=== PATIENT | female | born 1965 | race Caucasian/White ===

== ENCOUNTER 2016-11-15 05:45 | Inpatient (IN) ==
[2016-11-15] MEDS ORDERED: DUONEB (A & A) INH ONE (05:55)
--- NOTE | 2016-11-15 06:55 | EKG Report ---
Test Performed on : 11/15/2016 06:00:37 AM Test Reason : SOB Blood Pressure : / mmHG Vent. Rate : 092 BPM Atrial Rate : 092 BPM P-R Int : 146 ms QRS Dur : 078 ms QT Int : 358 ms P-R-T Axes : 080 056 076 degrees QTc Int : 442 ms Sinus rhythm. with occasional premature ventricular complexes. Otherwise normal ECG When compared with ECG of 10-OCT-2016 11:56, premature ventricular complexes. are now present Unconfirmed Result
[2016-11-15 07:04] LABS: MANUAL DIFF NEEDED? NO
[2016-11-15] MEDS ORDERED: SOLU-MEDROL IV ONE (07:08)
[2016-11-15] MEDS ORDERED: ALBUTEROL NEB INH ONE (07:10)
[2016-11-15 07:12] LABS: BASO% 1.6 % (0.0-0.8); EOS# 0.13 X1000 (0.0-0.7); EOS% 1.9 % (0.0-10.0); HEMATOCRIT 31.7 % (37.0-47.0); HEMOGLOBIN 9.7 g/dL (12.0-16.0); LYMPH# 1.63 X1000 (1.2-3.4); LYMPH% 23.6 % (20.5-51.1); MCH 25.5 PG (27-31); MCHC 30.6 g/dL (33-37); MCV 83.4 FL (81-99); MONO# 1.01 X1000 (0.11-0.59); MONO% 14.6 % (1.7-9.3); MPV 9.4 FL (7.4-10.4); NEUT% 58.3 % (42.2-75.2); PLT 436 X1000 (130-400)
[2016-11-15] MEDS ORDERED: ATROVENT NEB INH ONE (07:13)
[2016-11-15 07:18] LABS: INR 0.93; PROTIME 9.7 Seconds (9.2-11.7); PTT 25.1 Seconds (22.0-36.0)
--- NOTE | 2016-11-15 07:25 | Diag Imaging Result Doc PS360 ---
EXAM: CHEST-2 VIEWS INDICATION: CP TECHNIQUE: 2 views COMPARISON: 10/10/2016 FINDINGS: The lungs are somewhat hyperinflated similar to the previous study. The lungs are grossly clear. There is no discrete pleural fluid collection or pneumothorax. The cardiomediastinal silhouette and central vasculature are grossly unremarkable. IMPRESSION: Suggestion of COPD. No definite acute pathology. Electronically signed by Tristin Cao 11/15/2016 7:23 AM
[2016-11-15 07:34] LABS: AGAP 14; ALBUMIN 3.8 g/dL (3.5-5.0); ALKALINE PHOSPHATASE 116 U/L (32-104); BUN 6 mg/dL (8-22); CALCIUM 8.2 mg/dL (8.8-10.2); CHLORIDE 105 mmol/L (98-107); CK PROFILE 160 U/L (24-173); COSMO 280; GOT 27 U/L (10-30); GPT 12 U/L (10-36); MAGNESIUM 1.9 mg/dL (1.5-2.7); POTASSIUM 3.7 mmol/L (3.5-5.1); SODIUM 142 mmol/L (136-145); TCO2 23 mmol/L (25-35); TOTAL BILIRUBIN 0.15 mg/dL (0.20-1.00); TOTAL PROTEIN 5.9 g/dL (6.3-8.3)
[2016-11-15] MEDS ORDERED: ROCEPHIN 1 GM/NS 1 GM/50 ML IVPB IV ONE (08:47)
[2016-11-15] MEDS ORDERED: MORPHINE IV ONE (09:17)
[2016-11-15 09:44] LABS: ALLEN TEST YES; BE 0.1 mmoll (-3.0-3.0); BLOOD TYPE ARTERIAL; DRAW SITE R RADIAL; METHB 0.9 % (0.0-1.5); O2(CT) 10.7 mL/dL (15.0-23.0); PCO2(98.6) 39 mmHg (35-45); PO2(98.6) 86 mmHg (60-100); SAMPLE BLOOD; SAO2 97.4 % (95.0-100.0); THB 8.1 g/dL (11.5-17.4); pH(98.6) 7.41 (7.35-7.45)
[2016-11-15 09:45] LABS: MODALITY CANNULA
[2016-11-15 10:17] LABS: IRON SATURATION 6 %; TIBC 511 ug/dL; TOTAL IRON 30 ug/dL (49-151); UNBOUND IRON 481 ug/dL (112-346)
--- NOTE | 2016-11-15 10:22 | PROVIDER DOCUMENTATION ---
This chart was entered by Bogdan Bhatia Scribe, acting as scribe for Crispin Robledo MD. HPI-Respiratory General - General Chief Complaint: Shortness of Breath Stated Complaint: resp distress Time Seen by Provider: 11/15/16 06:10 Source: patient Allergies/Adverse Reactions: Patient Allergies Allergy/AdvReac Type Severity Reaction Status Date / Time methotrexate Allergy Unknown Verified 11/15/16 06:10 cephalexin monohydrate * AdvReac DIARRHEA Verified 11/15/16 06:10 [From Keflex] ondansetron HCl * AdvReac NAUSEA Verified 11/15/16 06:10 [From Zofran (as hydrochloride)] Home Medications: Home Medication List Medication Instructions Recorded Confirmed Last Taken Type Fluticasone/Salmet 250/50 INH 1 puff INH RTBID #1 inhaler 09/09/15 11/15/16 07:00 Rx [Advair 250/50 Diskus] 1 PUFF Sucralfate [Carafate] 1 gm PO 4XDAY #60 tablet 09/09/15 11/15/16 11/14/16 17:00 Rx Albuterol Sulfate Inhaler 2 puff INH PD8BVBP #30 inhaler 05/09/16 11/15/1610/10 07:00 Rx [Ventolin Hfa] 2 PUFF Albuterol [Albuterol Neb] 2.5 mg INH Q4H PRN PRN #30 neb 08/07/16 11/15/1611/15 05:30 Rx Alprazolam [Xanax] 0.5 mg PO BID PRN PRN #30 tablet 08/07/16 11/15/16 10/10/16 07:00 Rx 0.5 MG Fluticasone 50 Mcg Nasal Pray 1 spray AUDI DAILY #1 bottle 08/07/16 11/15/1608/28 07:00 Rx [Flonase] Gabapentin [Neurontin] 200 mg PO TID #90 capsule 08/07/16 11/15/16 11/14/16 19: 00 Rx Hydrocodone/APAP 7.5 mg/325 mg 1 each PO Q4H PRN PRN #30 tablet 08/07/1610/10/16 07:00 Rx [[place]-7.5] 1 EACH Metoprolol Succinate E.r. [Toprol 25 mg PO DAILY #90 tablet 08/07/16 11/15/16 07:00 Rx Xl] Prednisone 10 mg PO DAILY #40 tablet 08/07/16 11/15/16 11/14/16 07:00 Rx Trazodone [Desyrel] 50 mg PO QHS #30 tablet 08/07/16 11/15/16 11/14/16 20:00 Rx Promethazine [Phenergan] 25 mg PO Q8H PRN PRN #10 tablet 08/15/16 11/15/1610/10 07:00 Rx 25 MG CefTRIAXONE [Rocephin] 1 gm .SEE ORDER DAILY #1 vial 11/15/16 Unknown Rx - History of Present Illness-Resp Nature of Presenting Problem: patient is a 51 y/o F that presents with shortness of breath that has progressed over 5 days. She has COPD and is o2 dependent. She has been on 4 liters but has had to increase it over the past few days. She has had a cough but no fever/chills, chest pain, or leg swelling. She has done more breathing treatments than usual as well. Last hospital admission was last year. She feels she is getting worse. Quality of Pain: reports: tightness Severity in ED: reports: moderate Onset/Duration: reports: gradual, 5 days ago Timing: reports: improving Context: denies: out of meds, aspiration/choking Cough Quality/Degree: reports: moderate, productive cough Episode Frequency: chronic episodes Current Respiratory Medication Therapy: Initiated see nurses note Modifying Factors: worse with: coughing Associated Symptoms: reports: cough, shortness of breath, short of breath, wheezing. denies: chest pain/soreness, fever/chills, nasal congestion, nasal drainage Similar Symptoms Previously?: Yes Recently seen or treated by another doctor?: No Review of Systems - Adult - REVIEW OF SYSTEMS - ADULT Constitutional: denies: chills, fever Eyes: reports: no symptoms reported Ears, Nose, Mouth & Throat: reports: no symptoms reported Cardiovascular: denies: chest pain, palpitations, syncope Respiratory: reports: cough, shortness of breath, wheezing Gastrointestinal: denies: abdominal pain, nausea, vomiting Genitourinary: denies: dysuria, frequency, hematuria Musculoskeletal: denies: back pain, joint pain, neck pain Integumentary: reports: no symptoms reported Neurological: reports: no symptoms reported Psychiatric: reports: no symptoms reported Endocrine: reports: no symptoms reported Hematologic/Lymphatic: reports: no symptoms reported Allergic/Immunologic: reports: no symptoms reported All Other Systems: Reviewed and Negative Past History - Adult - PAST MEDICAL HISTORY-ADULT Review of Records: reports: Old Records Reviewed, Nursing Assessment Review, Medications Reviewed Cardiovascular: reports: A-Fib, HTN, hyperlipidemia Respiratory: reports: COPD, pneumonia Gastrointestinal: reports: GERD Musculoskeletal: reports: fibromyalgia, intervertebral disc disease, osteoporosis Endocrine/Immune: reports: thyroid disorder (hypo) - PRIOR SURGERIES/PROCEDURES Surgical/Procedure History: reports: recent surgery (hernia repair/bowel obstruction), cholecystectomy, tonsillectomy, hernia repair, bowel surgery ( colon resection), other (spleenectomy) - IMMUNIZATION STATUS Childhood Immunizations: See Nurse Assessment Flu Vaccine: See Nurse Assessment - FAMILY HISTORY Family History: reviewed, not pertinent - SOCIAL HISTORY Smoking: quit greater than 1 year, cigarettes Living Situation: family Physical Exam-General - PHYSICAL EXAM-ADULT Initial Vital Signs Reviewed: Yes - CONSTITUTIONAL General Appearance: alert, mild distress - EYES Eyes: PERRL/EOMI, pink conjunctivae - HEAD, EARS, NOSE, MOUTH & THROAT HENMT: normocephalic/atraumatic, moist mucous membranes, normal ENT inspection - NECK Neck: full range of motion, normal inspection - RESPIRATORY Respiratory: no respiratory distress, no accessory muscle use, wheezing - CARDIOVASCULAR Cardiovascular: regular rate, rhythm, no edema, no murmur - GASTROINTESTINAL (ABDOMEN) Abdominal Exam: normal bowel sounds, non tender, soft - MUSCULOSKELETAL Extremity: normal range of motion, normal inspection, no pedal edema, no calf tenderness - SKIN Integumentary: normal color, warm/dry - NEUROLOGIC Neurologic: supervisor mirror fabrication II-XII nml as tested, no motor/sensory deficits - PSYCHIATRIC Psych/Mental Status: normal mood/affect, normal thought content, normal thought process, oriented x 3 Progress - PLAN OF CARE/RESULTS Progress/Plan/Lab Results: Vital Signs - 8 hr 11/15/16 06:09 11/15/16 07:05 11/15/16 07:15 Temperature 98.5 F Pulse Rate 89 98 H 98 H Respiratory Rate 15 16 18 Blood Pressure 129/86 118/77 O2 Sat by Pulse Oximetry 100 97 Laboratory Results - last 24 hr 11/15/16 11/15/16 11/15/16 06:10 06:10 06:10 WBC RBC Hgb Hct MCV MCH MCHC RDW Std Deviation Plt Count MPV Immature Gran % (Auto) Neut % (Auto) Lymph % (Auto) Brooks % (Auto) Eos % (Auto) Baso % (Auto) Immature Gran # (Auto) Neut # (Auto) Lymph # (Auto) Brooks # (Auto) Eos # (Auto) Baso # (Auto) PT INR PTT (Actin FS) D-Dimer 0.17 Specimen Type Sample Site pH pCO2 pO2 HCO3 Base Excess Oxyhemoglobin ABG O2 Sat (Calculated) ABG O2 Saturation ABG Carboxyhemoglobin ABG Methemoglobin Cruz Test A-a O2 Difference Total Hemoglobin Lactate Liter Flow Blood Gas Modality FiO2 % Sodium 142 Potassium 3.7 Chloride 105 Carbon Dioxide 23 L Anion Gap 14 BUN 6 L Creatinine 0.4 L Estimated GFR/1.73 m2 > 60 BUN/Creatinine Ratio 15 Glucose 87 Calculated Osmolality 280 Calcium 8.2 L Magnesium 1.9 Iron TIBC % Saturation Unsat Iron Binding Total Bilirubin 0.15 L AST 27 ALT 12 Alkaline Phosphatase 116 H Creatine Kinase 160 Troponin T < 0.010 Nqs-[id number]-Pokjttnkqap Pept Total Protein 5.9 L Albumin 3.8 Globulin 2.1 Albumin/Globulin Ratio 1.8 Triglycerides Cholesterol LDL Cholesterol Direct VLDL Cholesterol, Calc HDL Cholesterol Coronary Risk Interp Folate 11/15/16 11/15/16 11/15/16 06:10 06:10 06:10 WBC 6.91 RBC 3.80 L Hgb 9.7 L Hct 31.7 L MCV 83.4 MCH 25.5 L MCHC 30.6 L RDW Std Deviation 20.2 H Plt Count 436 H MPV 9.4 Immature Gran % (Auto) 0.0 Neut % (Auto) 58.3 Lymph % (Auto) 23.6 Brooks % (Auto) 14.6 H Eos % (Auto) 1.9 Baso % (Auto) 1.6 H Immature Gran # (Auto) 0.00 Neut # (Auto) 4.03 Lymph # (Auto) 1.63 Brooks # (Auto) 1.01 H Eos # (Auto) 0.13 Baso # (Auto) 0.11 PT 9.7 INR 0.93 PTT (Actin FS) 25.1 D-Dimer Specimen Type Sample Site pH pCO2 pO2 HCO3 Base Excess Oxyhemoglobin ABG O2 Sat (Calculated) ABG O2 Saturation ABG Carboxyhemoglobin ABG Methemoglobin Cruz Test A-a O2 Difference Total Hemoglobin Lactate Liter Flow Blood Gas Modality FiO2 % Sodium Potassium Chloride Carbon Dioxide Anion Gap BUN Creatinine Estimated GFR/1.73 m2 BUN/Creatinine Ratio Glucose Calculated Osmolality Calcium Magnesium Iron TIBC % Saturation Unsat Iron Binding Total Bilirubin AST ALT Alkaline Phosphatase Creatine Kinase Troponin T Hlt-S-Atzdyygbvdu Pept 187 Total Protein Albumin Globulin Albumin/Globulin Ratio Triglycerides Cholesterol LDL Cholesterol Direct VLDL Cholesterol, Calc HDL Cholesterol Coronary Risk Interp Folate 11/15/16 11/15/16 11/15/16 06:10 06:10 06:10 WBC RBC Hgb Hct MCV MCH MCHC RDW Std Deviation Plt Count MPV Immature Gran % (Auto) Neut % (Auto) Lymph % (Auto) Brooks % (Auto) Eos % (Auto) Baso % (Auto) Immature Gran # (Auto) Neut # (Auto) Lymph # (Auto) Brooks # (Auto) Eos # (Auto) Baso # (Auto) PT INR PTT (Actin FS) D-Dimer Specimen Type Sample Site pH pCO2 pO2 HCO3 Base Excess Oxyhemoglobin ABG O2 Sat (Calculated) ABG O2 Saturation ABG Carboxyhemoglobin ABG Methemoglobin Cruz Test A-a O2 Difference Total Hemoglobin Lactate Liter Flow Blood Gas Modality FiO2 % Sodium Potassium Chloride Carbon Dioxide Anion Gap BUN Creatinine Estimated GFR/1.73 m2 BUN/Creatinine Ratio Glucose Calculated Osmolality Calcium Magnesium Iron 30 L TIBC 511 % Saturation 6 Unsat Iron Binding 481 H Total Bilirubin AST ALT Alkaline Phosphatase Creatine Kinase Troponin T Sny-P-Grdifopgthh Pept Total Protein Albumin Globulin Albumin/Globulin Ratio Triglycerides 63 Cholesterol 187 LDL Cholesterol Direct 67 VLDL Cholesterol, Calc 13 HDL Cholesterol 131 H Coronary Risk Interp 2.00 Folate 15.5 11/15/16 09:30 WBC RBC Hgb Hct MCV MCH MCHC RDW Std Deviation Plt Count MPV Immature Gran % (Auto) Neut % (Auto) Lymph % (Auto) Brooks % (Auto) Eos % (Auto) Baso % (Auto) Immature Gran # (Auto) Neut # (Auto) Lymph # (Auto) Brooks # (Auto) Eos # (Auto) Baso # (Auto) PT INR PTT (Actin FS) D-Dimer Specimen Type ARTERIAL Sample Site R RADIAL pH 7.41 pCO2 39 pO2 86 HCO3 25.0 Base Excess 0.1 Oxyhemoglobin 92.9 L ABG O2 Sat (Calculated) 10.7 L ABG O2 Saturation 97.4 ABG Carboxyhemoglobin 3.70 H ABG Methemoglobin 0.9 Cruz Test YES A-a O2 Difference 122.0 Total Hemoglobin 8.1 L Lactate 0.60 Liter Flow 4.0 Blood Gas Modality CANNULA FiO2 % 36.0 Sodium Potassium Chloride Carbon Dioxide Anion Gap BUN Creatinine Estimated GFR/1.73 m2 BUN/Creatinine Ratio Glucose Calculated Osmolality Calcium Magnesium Iron TIBC % Saturation Unsat Iron Binding Total Bilirubin AST ALT Alkaline Phosphatase Creatine Kinase Troponin T Mki-Q-Vibljpavbib Pept Total Protein Albumin Globulin Albumin/Globulin Ratio Triglycerides Cholesterol LDL Cholesterol Direct VLDL Cholesterol, Calc HDL Cholesterol Coronary Risk Interp Folate Orders Category Date Time Status Admit - [facility] Routine AdmDCTranf 11/15/16 10:40 Ordered Activity - Up with Assistance ORDERED Care 11/15/16 10:40 Active Cardiac Monitoring DIRECTED Care 11/15/16 06:58 Completed Intake and Output-Strict ORDERED Care 11/15/16 10:40 Active Nursing- Assist w/ IS as order ORDERED Care 11/15/16 10:40 Active Oxygen Therapy- ED Nursing DIRECTED Care 11/15/16 05:55 Completed Saline Loc DIRECTED Care 11/15/16 05:55 Completed Turn, Cough and Deep Breathe Q4HR.AWAKE Care 11/15/16 10:40 Active Vital Signs Order Q 4-HR ASSESS Care 11/15/16 10:40 Active Z-Document. for Tele Applied ORDERED Care 11/15/16 10:40 Active Regular Diet Diet 11/15/16 09:32 Active CHEST-2 VIEWS [RAD] Stat Exams 11/15/16 06:58 Completed A1C HGB W EST AVG GLUCOSE [CHEM] Stat Lab 11/15/16 06:10 Received ABG [RESP] Routine Lab 11/15/16 09:30 Completed CBC WITH DIFF [HEME] Routine Lab 11/16/16 06:00 Ordered CBC WITH ELECTRONIC DIFF [HEME] Stat Lab 11/15/16 06:10 Completed CK PROFILE [SP CHEM] Stat Lab 11/15/16 06:10 Completed COMPREHENSIVE METABOLIC PANEL [CHEM] Routine Lab 11/16/16 06:00 Ordered COMPREHENSIVE METABOLIC PANEL [CHEM] Stat Lab 11/15/16 06:10 Completed D-DIMER [CHEM] Stat Lab 11/15/16 06:10 Completed FERRITIN Routine Lab 11/15/16 06:10 Received FOLATE Routine Lab 11/15/16 06:10 Completed LIPID PROFILE W/DIR LDL [LIPIDS] Stat Lab 11/15/16 06:10 Completed MAGNESIUM [CHEM] Stat Lab 11/15/16 06:10 Completed PRO B-NATRIURETIC PEPTIDE Stat Lab 11/15/16 06:10 Completed PROTIME WITH INR [COAG] Stat Lab 11/15/16 06:10 Completed PTT [COAG] Stat Lab 11/15/16 06:10 Completed TROPONIN T Stat Lab 11/15/16 06:10 Completed UA NIMS W/REFLEX CULT [URINALYSIS] Routine Lab 11/15/16 10:40 Uncollected UIBC W TOTAL IRON [CHEM] Routine Lab 11/15/16 06:10 Completed VITAMIN B12 Routine Lab 11/15/16 06:10 Received 0.9% Sodium Chloride Inj [Ns] 1,000 ml Med 11/15/16 10:40 Active IV 75 mls/hr Acetaminophen [Tylenol] Med 11/15/16 10:40 Active 650 mg PO Q4-6H PRN PRN Acetylcysteine 20% [Mucomyst 20%] Med 11/15/16 19:30 Active 3 ml INH RTBID Albuterol 2.5MG/Ipratrop 0.5MG [Duoneb (A & A)] Med 11/15/16 05:55 Discontinued 3 ml INH NOW ONE Albuterol 2.5MG/Ipratrop 0.5MG [Duoneb (A & A)] Med 11/15/16 11:30 Active 3 ml INH RTQ4H Albuterol [Albuterol Neb] Med 11/15/16 07:10 Discontinued 10 mg INH NOW ONE Alprazolam [Xanax] Med 11/15/16 10:40 Active 0.5 mg PO BID PRN PRN Budesonide [Pulmicort] Med 11/15/16 19:30 Active 0.5 mg INH RTBID CefTRIAXONE 1 GM/NS [Rocephin 1 gm/Ns] Med 11/15/16 08:47 Discontinued 1 gm in 50 ml IV NOW CefTRIAXONE 1 GM/NS [Rocephin 1 gm/Ns] Med 11/16/16 08:00 Active 1 gm in 50 ml IV Q24H Enoxaparin [Lovenox] Med 11/16/16 08:00 Active 40 mg SUBQ Q24H Fluticasone 50 Mcg Nasal Pray [Flonase] Med 11/16/16 09:00 Active 1 spray AUDI DAILY Gabapentin [Neurontin] Med 11/15/16 13:00 Active 200 mg PO TID Hydrocodone/APAP 7.5 mg/325 mg [[place]-7.5] Med 11/15/16 10:40 Active 1 each PO Q4H PRN PRN Ipratropium [place] Neb [Atrovent Neb] Med 11/15/16 07:13 Discontinued 0.5 mg INH NOW ONE Methylprednisolone Sod Succ [Solu-Medrol] Med 11/15/16 07:08 Discontinued 125 mg IV NOW ONE Methylprednisolone Sod Succ [Solu-Medrol] Med 11/15/16 15:00 Active 60 mg IV Q8H Metoprolol Succinate E.r. [Toprol Xl] Med 11/16/16 09:00 Active 25 mg PO DAILY Morphine Med 11/15/16 09:17 Discontinued 4 mg IV NOW ONE Ondansetron [Zofran] Med 11/15/16 10:40 Active 4 mg IV Q4H PRN PRN Pantoprazole [Protonix] Med 11/16/16 07:00 Active 40 mg PO DAILY@0700 Promethazine [Phenergan] Med 11/15/16 10:40 Active 25 mg PO Q8H PRN PRN Sucralfate [Carafate] Med 11/15/16 13:00 Active 1 gm PO 4XDAY Trazodone [Desyrel] Med 11/15/16 21:00 Active 50 mg PO QHS Aerosol Treatments Routine Ot 11/15/16 05:55 Completed Aerosol Treatments Routine Ot 11/15/16 07:12 Completed Aerosol Treatments Routine Ot 11/15/16 07:13 Completed Aerosol Treatments Routine Ot 11/15/16 10:40 Active Aerosol Treatments Stat Ot 11/15/16 05:55 Completed Aerosol Treatments Stat Ot 11/15/16 05:55 Completed Aerosol Treatments Stat Ot 11/15/16 07:12 Completed Aerosol Treatments Stat Ot 11/15/16 07:13 Completed Incentive Spirometer Q4HR.AWAKE Ot 11/15/16 13:00 Ordered Incentive Spirometer Q4HR.AWAKE Ot 11/15/16 17:00 Ordered Incentive Spirometer Q4HR.AWAKE Ot 11/15/16 21:00 Ordered Incentive Spirometer Q4HR.AWAKE Ot 11/16/16 01:00 Ordered Incentive Spirometer Q4HR.AWAKE Ot 11/16/16 05:00 Ordered Incentive Spirometer Q4HR.AWAKE Ot 11/16/16 09:00 Ordered Oxygen Device Routine Ot 11/15/16 10:40 Active Peak Flow BID [facility] 11/15/16 21:00 Ordered Peak Flow BID Ot 11/16/16 09:00 Ordered Pulse Oximetry Routine Ot 11/15/16 10:40 Active Pulse Oximetry Stat [facility] 11/15/16 05:55 Completed Telemetry [OM.EQ] Routine [facility] 11/15/16 10:40 Active EKG [EKG] Stat Ther 11/15/16 05:55 Draft Transfer/Admit Order [TRANSFER] Routine Transfer 11/15/16 09:30 Completed 924-Andreia GUEVARA with hospitalist called Result Diagrams: 11/15/16 06:10 11/15/16 06:10 - EKG 1 Time of EKG reading by physician:: 06:00 EKG Read and Signed by:: Crispin Robledo EKG Interpretation (*Must complete 3 of following elements*): Normal Rate: 92 Rhythm: sinus rhythm with occasional PVCS [place]: normal QRS: PVC's MT Interval: normal ST Wave: normal - CONSULTS/PCP/HOSPITALIST Notification #1 *Consult/PCP/Hospitalist*: Andreia GUEVARA with hospitalist Time Discussed: 09:25 Reason/Comments: admit, accepted for Consult Disposition: Admit Departure - Departure Date of Disposition Decision: 11/15/16 Time of Disposition Decision: 09:28 DIAGNOSIS: COPD exacerbation, Dyspnea Disposition: ADMITTED INPATIENT 09 Certified Medical Emergency: Emergent Condition: Stable - Critical Care Note This patient required my direct & personal management of CC.: Yes Total Time (mins): 40 Critical Care Statement: This patient required my direct personal management to treat or rule out processes, the absence of which, could potentiallly result in sudden, clinically significant life or limb threatening deterioration. This chart was documented by the indicated scribe, (Bogdan Bhatia, Scribe) and accurately reflects the services I performed and decisions made by me, Crispin Robledo MD, as attested by the provider's signature.
[2016-11-15] MEDS ORDERED: TYLENOL PO PRN (10:40)
[2016-11-15] MEDS ORDERED: ZOFRAN IV PRN (10:40)
[2016-11-15 11:01] LABS: HEMOGLOBIN A1C 4.5 % (4.8-6.0)
[2016-11-15 11:03] LABS: FERRITIN 14 ng/mL (13-150)
[2016-11-15 11:10] LABS: FREE T4 0.86 ng/dL (0.93-1.70)
[2016-11-15] MEDS ORDERED: NS NEB INH SCH (11:15)
--- NOTE | 2016-11-15 11:22 | HISTORY AND PHYSICAL ---
PRIMARY CARE PROVIDER: Dr. Roland. PRIMARY [employer] SALES COUNTER MANAGER: Dr. Morgan. CHIEF COMPLAINT: Shortness of breath. HISTORY OF PRESENT ILLNESS: Ms. Bahena is a 51-year-old, ill-appearing, female with a medical history of COPD with 4 L nasal cannula home O2, chronic pain, hypertension, GERD who presents with complaints of 1 week's worth of shortness of breath at rest and with activity. She states she cannot walk any more than 5-10 feet without extreme shortness of breath. She states she has had chills but denies fever. She has a productive cough with clear phlegm. She periodically checks her O2 saturations at home and states that earlier in the week at 1 point it was down to 86% but primarily runs between 92 and 98% on 4 L nasal cannula. She denies any nausea, vomiting, or diarrhea. Denies any chest pain. Denies any lower extremity swelling or weight gain or loss. We will admit to the medical floor and treat her for COPD exacerbation and consult Dr. Morgan her cook morning for followup. PAST MEDICAL HISTORY: 1. COPD on 4 L nasal cannula at home. 2. Chronic pain syndrome primarily with pain in the legs. 3. Hypothyroidism. 4. Chronic respiratory failure. 5. Hypertension. 6. Hyperlipidemia. 7. GERD. 8. Rheumatoid arthritis. 9. Osteoarthritis. 10. History of pulmonary emboli. 11. Spinal stenosis. 12. Fibromyalgia. 13. Peptic ulcer disease. 14. Iron-deficiency anemia but does not take supplementation. SURGICAL HISTORY: Tonsillectomy, splenectomy and partial gastrectomy secondary to ulcers with colon resection. SOCIAL HISTORY: She is disabled. Lives with her stepmother. She quit smoking 6 years ago. Prior to that smoked 2 packs per day of cigarettes for 30 years. Denies alcohol or illicit drug use. FAMILY HISTORY: Positive for gastric cancer, diabetes and COPD. ALLERGIES: Methotrexate, cephalexin monohydrate and Zofran. HOME MEDICATIONS: Albuterol nebs inhaled p.r.n. q.4 hours. Albuterol sulfate inhaler 2 puffs 4 times a day. Xanax 0.5 mg p.o. twice daily p.r.n. Flonase inhaled nasal daily. Advair 1 puff inhaled twice daily. Neurontin 200 mg p.o. t.i.d. Bow 7.5, 1 tab p.o. q.4 hours p.r.n. Toprol- XL 25 mg p.o. daily. Was on prednisone taper back in July. Phenergan 25 mg p.o. every 8 hours p.r.n. Carafate 1 g p.o. 4 times per day. Trazodone 50 mg p.o. nightly. REVIEW OF SYSTEMS: Fourteen point review of systems were complete and all were negative except for those mentioned above HPI. PHYSICAL EXAMINATION: VITAL SIGNS: Temperature 98.5 degrees, heart rate 94, respiratory rate 18, blood pressure 133/71, O2 saturation 96% on 4 L nasal cannula. GENERAL: Ms. Nestor Bahena is a 51-year-old, female in-appearing but is able to answer questions appropriately. HEENT: Atraumatic, normocephalic. Pupils equal, round, reactive to light. Extraocular movements intact. Mucous membranes dry. NECK: No JVD or carotid bruits noted. CARDIOVASCULAR: S1, S2. Regular rate and rhythm. No rubs, gallops, murmurs. PULMONARY: Expiratory wheezes throughout anterior and posteriorly in all lobes. No accessory muscle use or work of breathing noted. Currently on her home regimen O2 of 4 L nasal cannula. ABDOMEN/GI: Soft, nontender, nondistended. Positive bowel sounds x4. EXTREMITIES: No edema noted. +3 dorsalis pedal pulses, +2 radial pulses. SKIN: Warm, dry, intact and pale. NEUROLOGIC: A and O x4. Moves all extremities equally. LABORATORY DATA: White blood cells 6000, hemoglobin 9, hematocrit 31, platelet count 436,000. INR 0.93. D-dimer 0.17. ABG 7.41 pH, pCO2 39, PO2 86, bicarb 25, saturation 93 %. Lactate 0.6, and this was on 4 L nasal cannula. Sodium 142, potassium 3.7, BUN 6, creatinine 0.4, glucose 87, calcium 8.2, magnesium 1.9. Bilirubin 0.15. AST 27, ALT 12. CK 160, troponin less than 0.01. ProBNP 187. Protein 5.9. IMAGING: Chest x-ray: Suggestion of COPD. Lungs are clear but hyperinflated. EKG normal sinus rhythm, occasional PVCs, rate is 92. QTc is 442. ASSESSMENT/PLAN: 1. Chronic obstructive pulmonary disease with mild exacerbation. ABGs are stable. Chest x-ray is clear. No obvious signs of pneumonia but has expiratory wheezes throughout her lungs with significant shortness of breath at rest and with activity. Is unable to ambulate 5-10 feet. She wears 4 L nasal cannula at home of oxygen. Will continue that. Continue IV steroids and Rocephin for prophylaxis coverage, nebulizers, turn, cough, deep breathe, incentive spirometer and will consult Dr. Morgan per patient request. 2. Fibromyalgia chronic pain syndrome. Rheumatoid arthritis. Osteoarthritis. Continue home pain medication regimen. 3. Hypothyroidism. She does not take Synthroid at home and it looks like her last TSH and T4 were stable. It is unknown if maybe she was taken off of it. We will go ahead and do a TSH, T4 to double check this diagnosis. 4. Hypertension. Continue home medications. 5. Hyperlipidemia. She also does not have any kind of statin or cholesterol medication so we will check her cholesterol level or cholesterol pedal. 6. GERD. No home medication regimen for this either but will go ahead and will continue her Carafate because she does have history of peptic ulcer disease. Will do Prilosec also. 7. Peptic ulcer disease history with a history of gastrectomy and colon resection. Again we will continue with Prilosec and Carafate for now. 8. History of PE but D-dimer is normal this admit. 9. Deep venous thrombosis prophylaxis. Lovenox. Dictated by ISMAEL Noble for Madeline Solano MD cc: ISMAEL Noble MD Mamoun I. Najjar, MD Dr. Powell The patient was seen and examined by me. I agree with the assessment and plan as dictated. [facility]
[2016-11-15] MEDS: XOPENEX NEB INH SCH ×4 (11:25→23:18)
[2016-11-15] MEDS ORDERED: DUONEB (A & A) INH SCH (11:30)
[2016-11-15] MEDS: XANAX PO PRN ×2 (11:54→18:30)
[2016-11-15] MEDS: NORCO-7.5 PO PRN ×3 (11:54→20:30)
[2016-11-15] MEDS: NS 1,000 ML IV SCH (12:00)
[2016-11-15] MEDS: CARAFATE PO SCH ×3 (12:30→20:30)
[2016-11-15] MEDS: NEURONTIN PO SCH ×2 (12:30→16:08)
[2016-11-15 13:44] LABS: URINE SOURCE CLEAN CATCH
[2016-11-15 13:45] LABS: URINE MICRO REVIEW NEEDED? NO
[2016-11-15 13:50] LABS: BILIRUBIN URINE NEGATIVE (NEGATIVE); BLOOD URINE NEGATIVE (NEGATIVE); COLOR YELLOW; GLUCOSE URINE 150 mg/dL (NEGATIVE); LEUKOCYTES URINE NEGATIVE (NEGATIVE); NITRITE URINE POSITIVE (NEGATIVE); PH URINE 5.5; PROTEIN URINE NEGATIVE (NEGATIVE); SP GRAVITY URINE 1.009; TURBIDITY URINE CLEAR (CLEAR); UROBILINOGEN URINE NORMAL (NORMAL)
[2016-11-15 13:51] LABS: UR EPITHELIAL CELLS <10 /HPF (<10); URINE BACTERIA NEGATIVE /HPF; URINE CULTURE NEEDED? YES; URINE RBC <10 /HPF (<10); URINE WBC <10 /HPF (<10)
[2016-11-15] MEDS: SOLU-MEDROL IV SCH (15:14)
[2016-11-15] MEDS: PHENERGAN PO PRN (15:21)
[2016-11-15] MEDS: DOXYCYCLINE 100 MG in NS 250 ML IV SCH (17:26)
[2016-11-15] MEDS: PULMICORT INH SCH (19:30)
[2016-11-15] MEDS: MUCOMYST 20% INH SCH (19:30)
[2016-11-15] MEDS: DESYREL PO SCH (20:30)
[2016-11-16] MEDS: NS 1,000 ML IV SCH (00:19)
[2016-11-16] MEDS: PHENERGAN PO PRN ×3 (00:19→20:01)
[2016-11-16] MEDS: SOLU-MEDROL IV SCH ×4 (00:21→22:47)
[2016-11-16] MEDS: NORCO-7.5 PO PRN ×4 (00:50→11:48)
[2016-11-16] MEDS: XOPENEX NEB INH SCH ×3 (02:53→11:16)
[2016-11-16] MEDS: DOXYCYCLINE 100 MG in NS 250 ML IV SCH ×2 (04:48→14:48)
[2016-11-16 06:49] LABS: BASO% 0.1 % (0.0-0.8); EOS# 0.03 X1000 (0.0-0.7); EOS% 0.3 % (0.0-10.0); HEMATOCRIT 30.3 % (37.0-47.0); HEMOGLOBIN 9.1 g/dL (12.0-16.0); LYMPH# 0.48 X1000 (1.2-3.4); LYMPH% 5.5 % (20.5-51.1); MANUAL DIFF NEEDED? YES; MCH 25.7 PG (27-31); MCV 85.6 FL (81-99); MONO# 0.37 X1000 (0.11-0.59); MONO% 4.2 % (1.7-9.3); MPV 9.2 FL (7.4-10.4); NEUT% 89.9 % (42.2-75.2); PLT 400 X1000 (130-400); RBC 3.54 XMIL (4.2-5.4)
[2016-11-16] MEDS: XANAX PO PRN (06:55)
[2016-11-16] MEDS: PROTONIX PO SCH (06:55)
[2016-11-16 07:22] LABS: AGAP 9; ALBUMIN 3.6 g/dL (3.5-5.0); ALKALINE PHOSPHATASE 102 U/L (32-104); BUN 4 mg/dL (8-22); CALCIUM 8.6 mg/dL (8.8-10.2); CHLORIDE 105 mmol/L (98-107); COSMO 284; GOT 17 U/L (10-30); GPT 11 U/L (10-36); LYMPHS 7 % (21-51); MONO 4 % (1-9); SODIUM 142 mmol/L (136-145); TCO2 28 mmol/L (25-35); TOTAL BILIRUBIN 0.11 mg/dL (0.20-1.00); TOTAL PROTEIN 5.8 g/dL (6.3-8.3)
[2016-11-16 07:24] LABS: TARGET CELLS 1+
[2016-11-16] MEDS: MUCOMYST 20% INH SCH ×2 (07:56→19:50)
[2016-11-16] MEDS: PULMICORT INH SCH ×2 (07:57→19:50)
--- NOTE | 2016-11-16 08:14 | CONSULTATION ---
DATE OF CONSULTATION: 11/16/2016 REFERRING PHYSICIAN: Dr. Madeline Solano. CHIEF COMPLAINT: Shortness of breath. HISTORY OF PRESENT ILLNESS: This is a 51-year-old female with past medical history of COPD, chronic pain, hypothyroidism, chronic respiratory failure, hypertension, hyperlipidemia, GERD, rheumatoid and osteoarthritis, history of PE, spinal stenosis, fibromyalgia, PUD, and iron deficiency anemia. She presented to the hospital with complaints of shortness of breath. She states her shortness of breath is worse with exertion and admits to having a productive cough with clear sputum. She denies any fever, chills, chest pain, abdominal pain, nausea, vomiting, or diarrhea. She was admitted for further evaluation, management, and treatment. REVIEW OF SYSTEMS: A 10-point review of systems was pertinent on HPI, otherwise, noncontributory. PAST MEDICAL HISTORY: As mentioned in HPI, otherwise, noncontributory. PAST SURGICAL HISTORY: Tonsillectomy, splenectomy, partial gastrectomy secondary to ulcers with colon resection. SOCIAL HISTORY: The patient is disabled. She lives with her stepmother. She stopped smoking 6 years ago. Denies use of alcohol or illicit drugs. FAMILY HISTORY: Notable for gastric cancer, diabetes, and COPD. ALLERGIES: Methotrexate, cephalexin, and Zofran. ACTIVE MEDICATIONS: 1. Tylenol. 2. Mucomyst. 3. Xanax. 4. Pulmicort. 5. Rocephin. 6. Lovenox. 7. Flonase. 8. Neurontin. 9. [place]. 10. Xopenex. 11. Solu-Medrol. 12. Toprol. 13. Zofran. 14. Protonix. 15. Phenergan. 16. Carafate. 17. Desyrel. PHYSICAL EXAMINATION: Vital Signs: Blood pressure 133/83, heart rate 89, respiratory rate 18, temperature 98.3, oxygen saturation 100%. General: Awake, alert, sitting up in bed, in no acute distress. HEENT: Normocephalic and atraumatic. PERRLA. Cardiovascular: S1, S2 present. Regular rate and rhythm. Chest: Reduced entry with scattered expiratory wheezes. Abdomen: Soft, nontender, nondistended. Bowel sounds present. Extremities: No edema noted. Neurologic: Alert and oriented x3. No focal deficits. LABORATORY DATA AND INVESTIGATIONS: WBC 8.76, RBC 3.54, hemoglobin 9.1, hematocrit 30.3, platelet count 400,000. Sodium 142, potassium 4, chloride 105, carbon dioxide 28, anion gap 9, BUN 4, creatinine 0.4, glucose 162. Blood gas on 11/15/2016 reveals a pH of 7.41, pCO2 of 39, PO2 of 86, HC0 325. Base excess of 0.1. Saturating oxygen 97.4% ASSESSMENT AND PLAN: This is a 51-year-old female with a past medical history mentioned in the HPI, that presented to the hospital with complaints of shortness of breath. She was admitted for evaluation of her chronic obstructive pulmonary disease exacerbation. ABGs are stable. Continuous supply of supplemental oxygen, inhaled bronchodilators, IV steroids, and broad- spectrum antibiotics. Home medications for her chronic pain, hypothyroidism, hypertension, hyperlipidemia, GERD, and Lovenox for DVT prophylaxis and further recommendations pending diagnostic studies. Dictated by ISMAEL Johnson for Ronit Morgan MD cc: ISMAEL Johnson MD
[2016-11-16] MEDS: TOPROL XL PO SCH (09:01)
[2016-11-16] MEDS: FLONASE NAS SCH (09:01)
[2016-11-16] MEDS: CARAFATE PO SCH ×4 (09:01→21:02)
[2016-11-16] MEDS: NEURONTIN PO SCH ×3 (09:01→16:10)
[2016-11-16] MEDS: ROCEPHIN 1 GM/NS 1 GM/50 ML IVPB IV SCH (09:02)
[2016-11-16] MEDS: LOVENOX SUBQ SCH (09:02)
--- NOTE | 2016-11-16 14:34 | PROGRESS NOTE ---
DATE: 11/16/2016 SUBJECTIVE: Patient has no focal complaints. OBJECTIVE: Blood pressure 151/93, heart rate of 85, respiratory rate of 22, sats 96% on 4 L.Cardiovascular: Regular rate and rhythm. Pulmonary: Diffuse wheezing. Poor airflow throughout. GI: Soft, nontender, nondistended. Bowel sounds are positive. LABORATORY DATA: White count was 8, hemoglobin and hematocrit . Platelets 400,000. CMP was normal. PROBLEM LIST: 1. Chronic obstructive pulmonary disease exacerbation. She is still fairly tight. We will continue breathing treatments, steroids. I am going to switch her to DuoNebs. She is not having relative tachycardia, and I think she would benefit from the ipratropium. 2. Hypothyroidism appears to be stable. 3. Early urinary tract infection. We will continue antibiotics and follow closely. 4. Fibromyalgia syndrome. Continue regular medications. 5. She also has rheumatoid arthritis. DISCHARGE CONDITION: Pending her clinical course. cc: Rinku Steven MD
[2016-11-16] MEDS: XANAX PO SCH ×2 (14:48→18:49)
[2016-11-16] MEDS: DUONEB (A & A) INH SCH ×3 (15:57→23:01)
[2016-11-16] MEDS: NORCO-10 PO PRN ×2 (16:11→20:01)
[2016-11-16] MEDS: ROBITUSSIN-DM PO PRN (17:55)
[2016-11-16] MEDS: DESYREL PO SCH (21:02)
[2016-11-17] MEDS: NORCO-10 PO PRN ×6 (01:29→22:38)
[2016-11-17] MEDS: PHENERGAN PO PRN ×5 (03:34→22:38)
[2016-11-17] MEDS: DOXYCYCLINE 100 MG in NS 250 ML IV SCH ×2 (03:34→14:54)
[2016-11-17] MEDS: DUONEB (A & A) INH SCH ×6 (03:50→22:57)
[2016-11-17] MEDS: SOLU-MEDROL IV SCH ×3 (05:59→23:17)
[2016-11-17] MEDS: PROTONIX PO SCH (05:59)
[2016-11-17] MEDS: PULMICORT INH SCH ×2 (07:42→19:25)
[2016-11-17] MEDS: MUCOMYST 20% INH SCH ×2 (07:43→19:25)
[2016-11-17 08:08] LABS: HEMATOCRIT 31.3 % (37.0-47.0); HEMOGLOBIN 9.1 g/dL (12.0-16.0); MCH 26.4 PG (27-31); MCHC 29.1 g/dL (33-37); MCV 90.7 FL (81-99); MPV 9.5 FL (7.4-10.4); RBC 3.45 XMIL (4.2-5.4)
[2016-11-17 08:35] LABS: AGAP 11; BUN 7 mg/dL (8-22); CALCIUM 8.5 mg/dL (8.8-10.2); CHLORIDE 103 mmol/L (98-107); COSMO 285; POTASSIUM 3.9 mmol/L (3.5-5.1); SODIUM 143 mmol/L (136-145); TCO2 29 mmol/L (25-35)
[2016-11-17] MEDS: XANAX PO SCH ×3 (08:43→16:59)
[2016-11-17] MEDS: CARAFATE PO SCH ×4 (08:43→20:53)
[2016-11-17] MEDS: TOPROL XL PO SCH (08:43)
[2016-11-17] MEDS: LOVENOX SUBQ SCH (08:43)
[2016-11-17] MEDS: NEURONTIN PO SCH ×3 (08:43→16:59)
[2016-11-17] MEDS: ROCEPHIN 1 GM/NS 1 GM/50 ML IVPB IV SCH (08:43)
[2016-11-17] MEDS: FLONASE NAS SCH (08:47)
[2016-11-17] MEDS: ROBITUSSIN-DM PO PRN (10:01)
[2016-11-17] MEDS ORDERED: MORPHINE IV ONE (13:53)
--- NOTE | 2016-11-17 14:23 | PROGRESS NOTE ---
DATE: 11/17/2016 SUBJECTIVE: Patient has diffuse complaints. She has a headache for which she needs IV narcotics. Her Phenergan is not being given often enough, it was ordered as q.8, but she finds this unacceptable. She does feel like her breathing is somewhat improved but she still feels short winded, short of breath. OBJECTIVE: Vital Signs: Blood pressure was 131/75, heart rate of 81, respiratory rate 20, temperature 98.3 degrees, 94% on 4 L. Cardiovascular: Regular rate and rhythm. Pulmonary: She had diminished breathing throughout, some wheezing, but overall improved from yesterday. GI: Soft, nontender, nondistended. Bowel sounds are positive. DIAGNOSTIC DATA: White count was 5, hemoglobin and hematocrit 9 and 31, platelets 378,000. Chemistries were unremarkable. PROBLEM LIST: 1. Chronic obstructive pulmonary disease exacerbation. I do think she is clinically improved. We will wean steroids, continue breathing treatments and follow. She is on antitussive therapy and we will go from there. 2. Hypothyroidism. Continue Synthroid. She is stable. 3. Early urinary tract infection. She is empirically on antibiotics, appears to be stable. 4. Fibromyalgia. We will continue her regular anti spasmodics. DISPOSITION: Hopefully home in the next 1-2 days. She is at her baseline level of oxygen. cc: Rinku Steven MD
[2016-11-17] MEDS: NICODERM PATCH TD SCH (14:24)
[2016-11-17] MEDS: TESSALON PO PRN (14:54)
[2016-11-17] MEDS: DESYREL PO SCH (20:52)
[2016-11-18] MEDS: NORCO-10 PO PRN ×4 (03:25→18:19)
[2016-11-18] MEDS: PHENERGAN PO PRN ×3 (03:25→18:19)
[2016-11-18] MEDS: DOXYCYCLINE 100 MG in NS 250 ML IV SCH ×2 (03:26→09:57)
[2016-11-18] MEDS: DUONEB (A & A) INH SCH ×4 (03:39→15:49)
[2016-11-18] MEDS: PROTONIX PO SCH (06:12)
[2016-11-18 06:36] LABS: HEMOGLOBIN 8.3 g/dL (12.0-16.0); MCH 25.9 PG (27-31); MCHC 29.6 g/dL (33-37); MCV 87.2 FL (81-99); MPV 10.4 FL (7.4-10.4); RBC 3.21 XMIL (4.2-5.4)
[2016-11-18 06:50] LABS: AGAP 9; BUN 8 mg/dL (8-22); CALCIUM 7.9 mg/dL (8.8-10.2); CHLORIDE 103 mmol/L (98-107); COSMO 282; POTASSIUM 4.5 mmol/L (3.5-5.1); SODIUM 142 mmol/L (136-145); TCO2 30 mmol/L (25-35)
[2016-11-18] MEDS: MUCOMYST 20% INH SCH (07:25)
[2016-11-18] MEDS: PULMICORT INH SCH (07:26)
[2016-11-18] MEDS ORDERED: DOXYCYCLINE PO SCH (09:00)
[2016-11-18] MEDS ORDERED: PREDNISONE PO SCH (09:15)
[2016-11-18] MEDS: NICODERM PATCH TD SCH (09:40)
[2016-11-18] MEDS: CARAFATE PO SCH ×3 (09:40→16:55)
[2016-11-18] MEDS: FLONASE NAS SCH (09:43)
[2016-11-18] MEDS: LOVENOX SUBQ SCH (09:43)
[2016-11-18] MEDS: XANAX PO SCH ×3 (09:44→17:27)
[2016-11-18] MEDS: NEURONTIN PO SCH ×3 (09:44→16:56)
[2016-11-18] MEDS: TOPROL XL PO SCH (09:56)
[2016-11-18] MEDS: ROCEPHIN 1 GM/NS 1 GM/50 ML IVPB IV SCH (09:58)
[2016-11-18] MEDS ORDERED: OMNICEF PO SCH (10:00)
[2016-11-18] MEDS: SOLU-MEDROL IV SCH (10:07)
[2016-11-18] MEDS: TESSALON PO PRN (14:26)
[2016-11-18] MEDS ORDERED: SOLU-MEDROL IM ONE (15:20)
[2016-11-18] MEDS ORDERED: DUONEB (A & A) INH ONE (15:21)
[2016-11-18] MEDS ORDERED: TORADOL IM ONE (15:23)
[2016-11-18 16:00] VITALS: BP 138/82
--- NOTE | 2016-12-09 22:06 | DISCHARGE SUMMARY ---
ADMISSION DATE: 11/15/2016 DISCHARGE DATE: 11/18/2016 CONSULTATIONS: Dr. Morgan, pulmonary. HOSPITAL COURSE: Briefly this is a 51-year-old female with history of COPD who came in for difficulty breathing. She was placed on nebulizer treatments, IV antibiotics, IV steroids, O2 therapy. She had very persistent request for various pain medication, anxiety medications during her course. She had slow clinical improvement. She did want Dr. Morgan to evaluate her while she was here and Dr. Morgan did evaluate her, agreed with treatment plan. On the she had improved somewhat but was still having some wheezing. She had some tachycardia but was kept on her duo nebs. On the she had overall improved. On the she still had some wheezing but was fairly back to baseline. Her white count had jumped up on the to 15 but was down to 11 on the day of discharge the , her hemoglobin and hematocrit was 8 and 28, clinically I felt she was stable for discharge. DISCHARGE MEDS: Albuterol DuoNeb q.4, Xanax 0.5 b.i.d. which she was given a limited supply because I think she had missed her appointment, doxazosin 100 b.i.d. for 7 days, Flonase daily, Advair 250/50 b.i.d., Neurontin 200 t.i.d., [place] p.r.n. she was also given a limited prescription for that, Toprol-XL 25 daily, prednisone taper, Phenergan p.r.n., sucralfate 1 g q.i.d. and trazodone 50 at bedtime. TIME SPENT: 32 minute discharge. cc: MD Dr. Luan Tompkins Dr.
== END 2016-11-18 19:45 | disposition home or self-care (01) ==
LOC: ED 05:45 → 3N 10:00 → SUATTDRO 10:00 → 3N 10:24
PROVIDERS: ATTEND Internal Medicine